=== PATIENT | male | born 1955 | race Caucasian/White ===

== ENCOUNTER 2019-02-08 18:12 | Inpatient (IN) | payer BC, OTHER ==
[~2019-02-08] VITALS: Ht 188 cm; Wt 109.3 kg
[2019-02-08 18:12] VITALS: BP_SYST 128; BP_SYST 80; BP_DIAS 70; BP_DIAS 75
--- NOTE | 2019-02-08 18:12 | NUR ---
Patient BIBA BLS, transferred to bed 9. RN evaluating patient at bedside.
--- NOTE | 2019-02-08 18:15 | NUR ---
BP RECORDED TO BE 80/75. ANNETTE KO MADE AWARE.
--- NOTE | 2019-02-08 18:16 | NUR ---
PATIENT ANSWERING QUESTIONS APPROPRIATELY AT THIS TIME. ALERT AND ORIENTED X4.
--- NOTE | 2019-02-08 18:27 | NUR ---
PATIENT ANSWERING QUESTIONS APPROPRIATELY AT THIS TIME; ALERT AND ORIENTED X4.
--- NOTE | 2019-02-08 18:35 | NUR ---
BP RECORDED AT THIS TIME TO BE 73/40. GIVEN VERBAL ORDER BY DR. WELDON TO RUN 0.9% NS WIDE OPEN, WITNESSED BY SHANTI HUIZAR. PT ALSO PLACED IN TRENDENLENBERG POSITION.
--- NOTE | 2019-02-08 18:46 | NUR ---
BP RECORDED TO BE 62/29. PATIENT ANSWERING QUESTIONS APPROPRIATELY. NS FLUIDS RUNNING AT THIS TIME WIDE OPEN, PT IN TRENDENLENBERG. ER MD DR. WELDON MADE AWARE.
--- NOTE | 2019-02-08 18:50 | NUR ---
SISTER WALKED IN AT BEDSIDE. PREV ADVISED ED ADMISSION THAT PATIENT IS NOT YET READY FOR VISITATION. SISTER STATES THAT SHE HAS POWER OF CHIEF OF PEDIATRIC UROLOGY. SISTER EXPRESSING FRUSTRATION AT PATIENT BEING IN TRENDENLENBERG; STATES THAT BP ALWAYS RUNS LOW. SISTER EDUCATED ON BENEFITS OF TRENDENLENBERG.
--- NOTE | 2019-02-08 18:51 | NUR ---
PATIENT TAKEN OUT OF [facility] PER POWER OF HYDROGEN CELL TENDER. ER MD DR. WELDON MADE AWARE.
--- NOTE | 2019-02-08 18:55 | NUR ---
BP 81/62, SISTER STATES THAT THIS IS PATIENT'S BASELINE. PT ANSWERING QUESTIONS APPROPRIATELY AT THIS TIME. NS FLUIDS STOPPED AT THIS TIME, TOTAL FLUID INFUSED 200ML. ER MD WELDON MADE AWARE.
--- NOTE | 2019-02-08 19:00 | NUR ---
DR. WELDON NOTED TO BE LEAVING ED AT THIS TIME.
--- NOTE | 2019-02-08 19:00 | NUR ---
PT'S SISTER STATED PT CAME HERE FOR RIGHT ARM PICC LINE CHECK, NOT FOR BP.
--- NOTE | 2019-02-08 19:01 | NUR ---
BP RECORDED TO BE 89/64 AT THIS TIME. PATIENT ANSWERING QUESTIONS APPROPRIATELY.
--- NOTE | 2019-02-08 19:15 | NUR ---
BP RECORDED TO BE 83/41 AT THIS TIME. PATIENT ANSWERING QUESTIONS APPROPRIATELY.
--- NOTE | 2019-02-08 19:35 | NUR ---
DR. TRUJILLO EVALUATING PATIENT.
--- NOTE | 2019-02-08 20:10 | NUR ---
US AT BEDSIDE.
[2019-02-08 21:07] LABS: BASOPHILS # (AUTO) 0.1 K/uL (0.00-0.22); BASOPHILS % (AUTO) 0.8 % (0.0-2.0); EOSINOPHILS # (AUTO) 0.2 K/uL (0-0.4); EOSINOPHILS % (AUTO) 2.4 % (0.0-4.0); HEMATOCRIT 22.3 % (36-52); LYMPHOCYTES % (AUTO) 13.9 % (20.5-51.1); MEAN CORPUSCULAR HEMOGLOBIN 28 pg (27-31); MEAN CORPUSCULAR HGB CONC 32 g/dL (33-37); MEAN CORPUSCULAR VOLUME 89.6 fL (80-94); MONOCYTES # (AUTO) 0.6 K/uL (0.8-1.0); MONOCYTES % (AUTO) 8.7 % (1.7-9.3); NEUTROPHILS # (AUTO) 5.2 K/uL (1.8-7.7); NEUTROPHILS % (AUTO) 74.2 % (42.2-75.2); PLATELET COUNT (AUTO) 349 K/uL (140-450); RED BLOOD CELL COUNT(AUTO) 2.48 MIL/uL (4.20-6.10); RED CELL DISTRIBUTION WIDTH 16.3 % (11.6-13.7)
--- NOTE | 2019-02-08 21:07 | NUR ---
PT ACTING APPROPRIATLY, PT STATES 8/10 CHRONIC PAIN; PT STATES TO BE COPING W/ PAIN AND DOES NOT WANT MEDICATION AT THIS TIME.
[2019-02-08 21:16] LABS: ANION GAP 12.3 (8-16); CARBON DIOXIDE 32.5 mmol/L (21-32); CREATININE 3.5 mg/dL (0.7-1.3); POTASSIUM 3.8 mmol/L (3.5-5.1)
[2019-02-08 21:22] LABS: ALBUMIN 1.8 g/dL (3.4-5.0); TOTAL BILIRUBIN 0.3 mg/dL (0.0-1.0)
--- NOTE | 2019-02-08 22:35 | NUR ---
WATER PROVIDED TO SISTER, COMFORT MEASURES PROVIDED TO PT.
[2019-02-08] MEDS ORDERED: VANCOMYCIN 1,000 MG in DEXTROSE 5% 250 ML IV ONE (23:35)
[2019-02-08] MEDS ORDERED: VANCOMYCIN 1,000 MG VIAL ONE (23:51)
--- NOTE | 2019-02-09 00:10 | NUR ---
MED TO BE ADMINISTERED, EDUCATION TO PT AND SISTER PROVIDED; OPPORTUNITY PROVIDED TO AKS AND ANSWER QUESTIONS.
--- NOTE | 2019-02-09 01:00 | NUR ---
DR. HANEY CALLED REGARDING UP DATE ON PT AND SAID THAT IN THE AM THE MD ASSIGNED TO HIS CARE WILL DECIDE IF THEY WILL SEND PT BACK TO [facility].
--- NOTE | 2019-02-09 02:20 | NUR ---
SPOKE W/ MOJGAN AT [facility]. SHE INFORMED ME THAT THE [facility] DOCTOR WOULD NOT RETURN THEIR CALLS. SHE REQUESTED THAT WE HOLD THE PATIENT IN THE ER. I INFORMED HER THAT WE COULD NOT CONTINUE TO HOLD THE PATIENT IN THE ER AND WE WOULD ADMIT TO OUR HOSPITALIST/RESIDENTS. SHE ACKNOWLEDGED AND VERBALIZED UNDERSTANDING. MD TRUJILLO NOTIFIED.
[2019-02-09] MEDS ORDERED: ACETAMINOPHEN 325 MG TAB PO PRN ×2 (02:30→05:15)
[2019-02-09] MEDS ORDERED: ONDANSETRON 4 MG/2 ML VIAL IM/IVP PRN (02:30)
[2019-02-09] MEDS ORDERED: DOCUSATE SODIUM 100 MG GELCAP PO PRN (02:30)
[2019-02-09] MEDS ORDERED: MORPHINE SULFATE 2 MG/ML SYR IVP PRN (02:30)
[2019-02-09] MEDS ORDERED: LORazepam 2 MG/ML VIAL IM/IVP PRN (02:30)
--- NOTE | 2019-02-09 03:00 | NUR ---
ORDER TO APPLY HYDRA-GUARD TO SACRAL WOUND, APPLIED DRESSING
[2019-02-09] MEDS ORDERED: NUTR30LI5 PO (03:02)
[2019-02-09] MEDS ORDERED: MAGN400S60 PO (03:02)
[2019-02-09] MEDS ORDERED: ACET-2619 PO (03:02)
[2019-02-09] MEDS ORDERED: AMLO2.5T PO (03:02)
[2019-02-09] MEDS ORDERED: BISA-213 RC (03:02)
[2019-02-09] MEDS ORDERED: ASPI-1790 PO (03:02)
[2019-02-09] MEDS ORDERED: TRAM50TA1 PO (03:02)
[2019-02-09] MEDS ORDERED: METO25TA PO (03:02)
[2019-02-09] MEDS ORDERED: ALPR1TAB2 PO (03:02)
[2019-02-09] MEDS ORDERED: NYST100022 PO (03:02)
[2019-02-09] MEDS ORDERED: HYDR-5122 PO (03:02)
[2019-02-09] MEDS ORDERED: ATOR20TA PO (03:02)
[2019-02-09] MEDS ORDERED: PANT40EC PO (03:02)
[2019-02-09] MEDS ORDERED: ASCO500T45 PO (03:02)
[2019-02-09] MEDS ORDERED: DOCU-299 PO (03:02)
[2019-02-09] MEDS ORDERED: LOV40I SUBQ (03:02)
[2019-02-09] MEDS ORDERED: ALBU3SOL83 IH (03:02)
[2019-02-09] MEDS ORDERED: DAPT500V IV (03:02)
[2019-02-09] MEDS ORDERED: MORP15TE33 PO (03:02)
[2019-02-09] MEDS ORDERED: ERGO500028 PO (03:02)
[2019-02-09] MEDS ORDERED: VITA1TAB44 PO (03:02)
[2019-02-09] MEDS ORDERED: CALC667T8 PO (03:02)
--- NOTE | 2019-02-09 03:05 | NUR ---
Patient noted to have skin tear upon arrival to ER. Skin tear to sacrum, mild redness, +blanching. Photos taken of wound and placed in chart. Wound covered with dressing. Physician informed.
[2019-02-09 03:09] VITALS: BP 113/66
--- NOTE | 2019-02-09 03:09 | NUR ---
RECEIVED BEDSIDE REPORT FROM SKI TOW OPERATOR, PATIENT ON CONTACT FOR HX MRSA OF WOUND,
--- NOTE | 2019-02-09 03:09 | NUR ---
PATIENT ON 4 L NC, V/S STABLE, C/O PAIN IN BACK, WILL MEDICATE WITH NORCO. MRSA TAKEN SENT TO LAB, HD CATH ON UPPER RIGHT CHEST, RIGHT PICC ON UPPER ARM, LEFT HAND 22 G SL IV, WILL GIVE NS. NOTED SACRAL WOUND, NOTED RIGHT ARM CELLULITIS, BACK LISA ON TOES, 1+ PITTING EDEMA ON BLE.
--- NOTE | 2019-02-09 03:20 | NUR ---
Admited to Tele. Patient went to room 117 via gurney by RN and EMT. Patient acting appropriatly, VSS. Belongings list completed. Report to GAYE Mckeon.
[2019-02-09] MEDS: HYDROcodone/APAP 5/325 MG 1 TAB TAB PO PRN ×2 (03:48→08:13)
[2019-02-09] MEDS: NACL 0.9% 1,000 ML IV SCH (03:49)
[2019-02-09 04:00] VITALS: BP 110/68
--- NOTE | 2019-02-09 04:45 | NUR ---
GAVE PATIENT SANDWICH
--- NOTE | 2019-02-09 05:01 | NUR ---
EXPLAINED TO PATIENT NEED FOR URINE SAMPLE
[2019-02-09] MEDS ORDERED: ALPRAZolam 0.5 MG TAB PO PRN (05:15)
[2019-02-09] MEDS ORDERED: MAGNESIUM HYDROXIDE 2400 MG/30 ML UDC PO PRN (05:15)
[2019-02-09] MEDS ORDERED: traMADol 50 MG TAB PO PRN (05:15)
[2019-02-09] MEDS ORDERED: BISACODYL 10 MG SUPP RC PRN (05:15)
[2019-02-09] MEDS ORDERED: MORPHINE TAB ER 15 MG TABER PO PRN (05:30)
--- NOTE | 2019-02-09 05:39 | NUR ---
PATIENT HAS BEEN SCREENED AND CATEGORIZED HIGH NUTRITION RISK. PATIENT WILL BE SEEN WITHIN 1-2 DAYS OF ADMISSION. 02/09/19-02/10/19 MARGARITO BAIG MS, RDN
[2019-02-09] MEDS ORDERED: ESCI20TA PO (05:40)
[2019-02-09] MEDS: PANTOPRAZOLE 40 MG TABEC PO SCH (05:52)
--- NOTE | 2019-02-09 06:02 | NUR ---
DUE PROTONIX GIVEN
--- NOTE | 2019-02-09 07:13 | NUR ---
ENDORSED PATIENT TO DAY SHIFT NURSE, PATIENT STABLE.
--- NOTE | 2019-02-09 07:14 | NUR ---
RECEIVED ENDORSEMENT FROM AUTOMOTIVE FUEL INJECTION SERVICER NURSE. PT IS AAOX4. RESPIRATIONS ARE EVEN AND UNLABORED ON 4L NC. LEFT HAND 22G IV INTACT, PATENT, AND INFUSING IVF. UPPER RIGHT ARM PICC NOTED AND INTACT. MEDIASTINAL SCAR NOTED. EDEMA PRESENT ON LE BILAT. C/O OF PAIN AT THIS TIME, WILL MEDICATE. PLAN OF CARE WAS REVIEWED WITH PT. PT VERBALIZED UNDERSTANDING. SAFETY MEASURES IN PLACE, CALL LIGHT WITHIN REACH. WILL CONTINUE TO MONITOR.
[2019-02-09 07:53] LABS: PROTHROMBIN TIME 11.3 secs (10.8-13.4)
[2019-02-09 07:58] LABS: BASOPHILS # (AUTO) 0.1 K/uL (0.00-0.22); BASOPHILS % (AUTO) 1.2 % (0.0-2.0); EOSINOPHILS # (AUTO) 0.2 K/uL (0-0.4); EOSINOPHILS % (AUTO) 2.9 % (0.0-4.0); LYMPHOCYTES # (AUTO) 1.2 K/uL (2.0-11.5); LYMPHOCYTES % (AUTO) 14.9 % (20.5-51.1); MEAN CORPUSCULAR HEMOGLOBIN 30 pg (27-31); MEAN CORPUSCULAR HGB CONC 33 g/dL (33-37); MEAN CORPUSCULAR VOLUME 89.1 fL (80-94); MONOCYTES # (AUTO) 0.9 K/uL (0.8-1.0); MONOCYTES % (AUTO) 10.7 % (1.7-9.3); NEUTROPHILS # (AUTO) 5.7 K/uL (1.8-7.7); NEUTROPHILS % (AUTO) 70.3 % (42.2-75.2); PLATELET COUNT (AUTO) 322 K/uL (140-450); RED BLOOD CELL COUNT(AUTO) 2.05 MIL/uL (4.20-6.10); RED CELL DISTRIBUTION WIDTH 16.6 % (11.6-13.7); WHITE BLOOD COUNT (AUTO) 8.1 K/uL (4.8-10.8)
[2019-02-09 08:00] VITALS: BP 132/63
[2019-02-09 08:00] LABS: HEMOGLOBIN 6.1 g/dL (12.0-18.0)
[2019-02-09 08:01] LABS: HEMATOCRIT 18.2 % (36-52)
[2019-02-09 08:04] LABS: ALBUMIN 1.6 g/dL (3.4-5.0); CARBON DIOXIDE 30.6 mmol/L (21-32); CHOL/HDL RATIO 1.9 (1-4.5); CREATININE 3.7 mg/dL (0.7-1.3); MAGNESIUM 1.9 mg/dL (1.8-2.4); PHOSPHORUS 5.8 mg/dL (2.5-4.9); POTASSIUM 3.6 mmol/L (3.5-5.1); THYROID STIMULATING HORMONE 1.6 uIU/mL (0.34-3.74); TOTAL BILIRUBIN 0.3 mg/dL (0.0-1.0)
[2019-02-09] MEDS: VIT-B COMP/VIT-C/FOLIC ACID 1 TAB PO SCH (08:11)
[2019-02-09] MEDS: LACTOBACILLUS RHAMNOSUS GG 1 EACH CAP PO SCH (08:11)
[2019-02-09] MEDS: ESCITALOPRAM 20 MG TAB PO SCH (08:12)
[2019-02-09] MEDS: DOCUSATE SODIUM 100 MG GELCAP PO SCH ×3 (08:12→21:55)
[2019-02-09] MEDS: ASCORBIC ACID 500 MG TAB PO SCH (08:12)
--- NOTE | 2019-02-09 08:18 | NUR ---
ADMINISTERED SCHEDULED MEDICATIONS. PT C/O OF 610 PAIN TO LOWER BACK. ADMINISTERED NORCO. SKIN TEAR ON LEFT HAND FROM PT REMOVING TAPE, REQUESTED ONLY PAPER TAPE. SIGN PLACED ON WALL. PT DOES NOT WANT PHOT TAKEN AT THIS TIME AND WANTS WOUND COVERED. COVERED WITH 2X2 GAUZE, WILL TAKE PHOTO LATER.
--- NOTE | 2019-02-09 08:30 | NUR ---
PT REFUSED TO SIGN CONSENT FOR BLOOD TRANSFUSION AT THIS TIME. STATES THAT HE WISHES TO SPEAK WITH HIS SISTER FIRST. WILL FOLLOW UP.
--- NOTE | 2019-02-09 08:58 | NUR ---
OBTAINED INFORMED CONSENT FOR BLOOD TRANSFUSION FROM PATIENT. DR. GAMA HAS EXPLAINED BLOOD TRANSFUSION TO PATIENT. OBTAIN DR. WEBBER WELL.
[2019-02-09] MEDS ORDERED: DAPTOmycin 500 MG VIAL IV SCH (09:00)
--- NOTE | 2019-02-09 09:02 | NUR ---
INFORMED DR. GAMA THAT PATIENT STATES HE TAKES MORPHINE AND USES LIDOCAINE PATCH PRIOR TO THIS HOSPITALIZATION. REQUESTING SAME PAIN REGIMEN. DR. GAMA WILL REVIEW PAIN MEDICATIONS.
--- NOTE | 2019-02-09 09:09 | NUR ---
ASKED HARVEST WORKER FRUIT TO BRING 0900 ROCEPHIN.
--- NOTE | 2019-02-09 09:15 | NUR ---
PATIENT REFUSED BARBARA FOBT SAMPLE. PER DR. GAMA, WILL WAIT ON BM FOR FOBT SAMPLE. PT IS AWARE AND VERBALIZED UNDERSTANDING.
[2019-02-09] MEDS ORDERED: HYDRAGUARD CREAM TP SCH (09:22)
[2019-02-09] MEDS: amLODIPine 5 MG TAB PO SCH ×2 (09:34→10:08)
[2019-02-09] MEDS: METOPROLOL 25 MG TAB PO SCH ×3 (09:34→21:00)
[2019-02-09] MEDS ORDERED: MORPHINE TAB ER 15 MG TABER PO SCH (09:35)
--- NOTE | 2019-02-09 10:28 | NUR ---
OBTAINED FOBT SAMPLE. PT HAD MODERATE SIZE FORMED, SOFT BM. OBTAINED CONSENT FOR HEMODIALYSIS AND CONSENT FOR MEDICAL RECORDS FROM [facility].
--- NOTE | 2019-02-09 10:32 | NUR ---
DID NOT ADMIN METOPROLOL OR AMLODIPINE- PLAN FOR HEMODIALYSIS TODAY.
--- NOTE | 2019-02-09 10:47 | NUR ---
FAXED REQUEST FOR MEDICAL RECORDS TO [facility].
[2019-02-09 12:00] VITALS: BP 96/58
[2019-02-09] MEDS: FUROSEMIDE 20 MG TAB PO SCH ×2 (12:00→16:00)
[2019-02-09] MEDS: CALCIUM ACETATE 667 MG TAB PO SCH ×2 (12:53→17:36)
--- NOTE | 2019-02-09 13:00 | NUR ---
SCHEDULED MEDICATIONS ADMINISTERED. OBTAINED URINE SAMPLE-WILL SEND TO LAB.
--- NOTE | 2019-02-09 13:09 | NUR ---
INFORMED ETCHER PRINTED CIRCUIT BOARDS THAT HD IS ORDERED FOR TODAY WITH 2 UNITS PRBC TO BE TRANSFUSED DURING DIALYSIS. CROSSMATCH STILL PENDING. EXTRA 1 UNIT OF PRBC JUST ORDERED. ETCHER PRINTED CIRCUIT BOARDS WILL CALL LAB TO FIND OUT STATUS.
--- NOTE | 2019-02-09 13:16 | NUR ---
[facility] STATES 1ST UNIT OF BLOOD WAS JUST SENT FOR CROSSMATCH. STATE BLOOD UNITS WILL TAKE "A WHILE" TO BE PREPARED.
[2019-02-09 13:51] LABS: APPEARANCE,URINE HAZY (CLEAR); BILIRUBIN,URINE 2+ (NEGATIVE); BLOOD, URINE 2+ (NEGATIVE); COLOR,URINE AMBER (YELLOW); LEUKOCYTE ESTERASE ,URINE NEGATIVE (NEGATIVE); NITRITE, URINE NEGATIVE (NEGATIVE); PH,URINE 5.5 (5.0-9.0); UGLUCOSE NEGATIVE (NEGATIVE)
[2019-02-09] MEDS ORDERED: ENOXAPARIN 30 MG/0.3 ML SYR SUBQ SCH (13:54)
[2019-02-09 13:57] LABS: BARBITURATE, URINE NEG. ng/ml (NEG <=200); BENZODIAZEPINE, URINE NEG. ng/mL (NEG <=200); CANNABINOID, URINE NEG. ng/mL (NEG <=50); COCAINE, URINE NEG. ng/mL (NEG <=300); OPIATE, URINE POS. ng/mL (NEG <=2000); PHENCYCLIDINE SCREEN,URINE NEG. ng/mL (NEG <=25)
[2019-02-09 14:04] LABS: URINE AMORPHOUS URATE 1+ /HPF (None Seen); WBC,URINE 0-5 /HPF (0-5)
--- NOTE | 2019-02-09 14:15 | NUR ---
BENITO FROM [facility] CALLED TO INQUIRE ABOUT BLOOD. INFORMED HER THAT BLOOD IS NOT READY, 1ST UNIT PRBC IS STILL IN PROCESS OF BEING CROSSMATCHED, BLOOD BANK AWARE OF ORDER FOR 2ND UNIT OF PRBC (2 UNITS TOTAL). NO ESTIMATE TIME FROM BLOOD BANK. BLOOD BANK ONLY STATES PRBC WILL TAKE "A WHILE" TO BE PREPARED.
--- NOTE | 2019-02-09 15:30 | NUR ---
BLOOD BANK STATES 2 UNITS PRBC READY.
--- NOTE | 2019-02-09 15:30 | NUR ---
INFORMED [facility] THAT 2 UNITS PRBC IS READY. SHEET PILE DRIVER OPERATOR WILL BE ON THE WAY NOW.
--- NOTE | 2019-02-09 15:32 | NUR ---
ASKED HOUSE RACHEAL NGUYỄN TO BRING PORTABLE FAN TO ROOM. PATIENT AND FAMILY MEMBER STATES ROOM TEMPERATURE TOO HIGH. ROOM TEMPERATURE IS ALREADY SET TO LOWEST.
--- NOTE | 2019-02-09 15:40 | NUR ---
PT LEFT UNIT WITH ALL PERSONAL BELONGINGS. GAVE BUS PASS AND HOMELESS FOOD PACKET. PT WILL RETURN TO UNSPECIFIED LOCATION. IN STABLE CONDITION.
[2019-02-09 16:00] VITALS: BP 91/55
--- NOTE | 2019-02-09 17:35 | NUR ---
1 UNIT PRBC OBTAINED FROM BLOOD BANK AND GIVEN TO TRAVEL MANAGER AT BEDSIDE.
--- NOTE | 2019-02-09 17:52 | NUR ---
OBTAINED 2ND UNIT PRBC AND GAVE TO PLAYGROUND WORKER.
--- NOTE | 2019-02-09 19:18 | NUR ---
REPORT AT BEDSIDE FROM RN DAYSHIFT NURSES FOR CONTINUITY OF CARE, PT IN STABLE CONDITION.
--- NOTE | 2019-02-09 19:18 | NUR ---
ENDORSED TO BROADCAST METEOROLOGIST NURSE. PATIENT IS STABLE.
--- NOTE | 2019-02-09 19:30 | NUR ---
PT IN BED NO S/S OF PAIN OR DISTRESS NOTED, HD IN PROGRESS AT BEDSIDE.
[2019-02-09 20:00] VITALS: BP 119/75
--- NOTE | 2019-02-09 21:00 | NUR ---
PT IN BED NO S/S OF PAIN OR DISTRESS NOTED. V/S FOLLOWS T 98.1 P 90 R 18 B/P 106/67 02 100% ON 4 LITERS VIA N/C.
--- NOTE | 2019-02-09 21:40 | NUR ---
HEMODIALYSIS FINISHED 2 LITERS OF FLUID TAKEN OUT.
[2019-02-09] MEDS: ATORVASTATIN 20 MG TAB PO SCH (21:55)
[2019-02-09] MEDS: MORPHINE TAB ER 15 MG TABER PO SCH (21:56)
--- NOTE | 2019-02-09 22:00 | NUR ---
PT TURNED AND REPOSITIONED NO C/O OF PAIN OR DISTRESS NOTED.
[2019-02-10] VITALS: BP 107/74
--- NOTE | 2019-02-10 | NUR ---
PT IN BED NO S/S OF PAIN OR DISTRESS NOTED. PICC LINE INTACT AND RUNNING N/S AT TKO AT 10MLS /HR. PT ALSO HAS SALINE LOCKED IV ON LEFT HAND. PT V/S FOLLOWS T 97.9 P 86 R 18 B/P 02 100 WITH 4 LITERS RUNNING VIA N/C. PT TURNED AND REPOSITIONED.
[2019-02-10] MEDS: HYDROcodone/APAP 5/325 MG 1 TAB TAB PO PRN ×2 (03:40→23:56)
[2019-02-10 04:00] VITALS: BP 106/67
--- NOTE | 2019-02-10 04:00 | NUR ---
PT IN BED, PT C/O MODERATE PAIN IN BACK AND ASKED FOR SOMETHING FOR THE BREAKTHROUGH PAIN, PT GIVEN PO/PRN NORCO, WILL MONITOR FOR EFFECT. PT TURNED AND REPOSITIONED.V/S FOLLOWS T 98.1 P 90 R 18 B/P 106/67 02 100% ON N/C AT 4 LITERS.
[2019-02-10] MEDS: PANTOPRAZOLE 40 MG TABEC PO SCH (07:01)
--- NOTE | 2019-02-10 07:25 | NUR ---
REPORT GIVEN TO SITAL AT BEDSIDE FOR CONTINUITY OF CARE, PT IN STABLE CONDITION.
--- NOTE | 2019-02-10 07:26 | NUR ---
RECEIVED REPORT FROM PM NURSE AT BEDSIDE, PT IS ON CONTACT ISOLATION FOR HX OF MRSA IN WOUND. PT HAS PICC LINE IN HIS RT UPPER ARM, TRIPLE LUME. HAS THE HD ACCESS ON HIS RT UPPER CHEST. HAS THE SCAR FROM THE OPEN HEART SURGERY DOEN ON PT BEFORE. PT HAS THE SACRAL WOUND. PT GOT HD 02/09/19, 2L OUTPUT. PT GETS HD EVERY SUNDAY, SUNDAY AND SUNDAY. PT A0X4, ABLE TO COMMUNICATE WELL. NO DISTRESS NOTED. CALL LIGHT WITHIN PTS REACH. WILL CONTINUE TO MONITOR PT.
[2019-02-10 08:00] VITALS: BP 114/73
[2019-02-10 08:34] LABS: MAGNESIUM 1.7 mg/dL (1.8-2.4); PHOSPHORUS 4.6 mg/dL (2.5-4.9)
[2019-02-10 08:45] LABS: BASOPHILS # (AUTO) 0.1 K/uL (0.00-0.22); BASOPHILS % (AUTO) 1.2 % (0.0-2.0); EOSINOPHILS # (AUTO) 0.3 K/uL (0-0.4); EOSINOPHILS % (AUTO) 3.6 % (0.0-4.0); HEMATOCRIT 24.4 % (36-52); HEMOGLOBIN 7.8 g/dL (12.0-18.0); LYMPHOCYTES # (AUTO) 1.2 K/uL (2.0-11.5); LYMPHOCYTES % (AUTO) 15.8 % (20.5-51.1); MEAN CORPUSCULAR HEMOGLOBIN 29 pg (27-31); MEAN CORPUSCULAR HGB CONC 32 g/dL (33-37); MEAN CORPUSCULAR VOLUME 89.9 fL (80-94); MONOCYTES # (AUTO) 0.9 K/uL (0.8-1.0); MONOCYTES % (AUTO) 12.4 % (1.7-9.3); PLATELET COUNT (AUTO) 298 K/uL (140-450); RED BLOOD CELL COUNT(AUTO) 2.71 MIL/uL (4.20-6.10); RED CELL DISTRIBUTION WIDTH 16.5 % (11.6-13.7); WHITE BLOOD COUNT (AUTO) 7.5 K/uL (4.8-10.8)
[2019-02-10 08:47] LABS: ANION GAP 10.7 (8-16); CARBON DIOXIDE 31.5 mmol/L (21-32); CREATININE 3.1 mg/dL (0.7-1.3); POTASSIUM 4.2 mmol/L (3.5-5.1)
[2019-02-10] MEDS: METOPROLOL 25 MG TAB PO SCH ×2 (09:00→23:56)
[2019-02-10] MEDS: amLODIPine 5 MG TAB PO SCH (09:00)
[2019-02-10] MEDS: NACL 0.9% 1,000 ML IV SCH (09:30)
[2019-02-10] MEDS: LACTOBACILLUS RHAMNOSUS GG 1 EACH CAP PO SCH (09:36)
[2019-02-10] MEDS: DOCUSATE SODIUM 100 MG GELCAP PO SCH ×2 (09:38→23:48)
[2019-02-10] MEDS: MORPHINE TAB ER 15 MG TABER PO SCH ×2 (09:38→20:22)
[2019-02-10] MEDS: ASCORBIC ACID 500 MG TAB PO SCH (09:38)
[2019-02-10] MEDS: ESCITALOPRAM 20 MG TAB PO SCH (09:39)
[2019-02-10] MEDS: VIT-B COMP/VIT-C/FOLIC ACID 1 TAB PO SCH (09:39)
[2019-02-10] MEDS: CALCIUM ACETATE 667 MG TAB PO SCH ×3 (09:39→17:00)
[2019-02-10] MEDS: EPOETIN ALFA 10,000 UNITS/ML VIAL SUBQ SCH (09:40)
[2019-02-10] MEDS: ENOXAPARIN 30 MG/0.3 ML SYR SUBQ SCH (09:43)
--- NOTE | 2019-02-10 09:55 | NUR ---
ADMINISTERED MEDS TO PT ORDERED. PTS BP MEDS PUT ON HOLD, WILL GET HD TODAY. PT OKAY WITH IT. TOLERATED ALL MEDS WELL. NO SIGN OF DISTRESS NOTED. CALL LIGHT WITHIN REACH. WILL CONTINUE TO MONITOR PT.
--- NOTE | 2019-02-10 11:45 | NUR ---
WOUND CARE EVALUATION NOTE: REASON FOR EVALUATION: LEFT FOOT AND SACRAL WOUNDS SKIN ASSESSMENT DONE WITH THIS 64 Y/O MALE PT ADMITTED TO [facility] WITH INITIAL DX RUE CELLULITIS. PAST MEDICAL HX INCLUDES HTN, COPD,ESRD WITH HD AND RECENT OPEN HEART SURGERY DECEMBER 2018. ALL ABOVE INFORMATION OBTAINED FROM ADMISSION H&P. AND /PT. PT IS AAX4. PT. IS AWAKE. SKIN IS WARM AND DRY, BLE HAIR GROWTH, NO EDEMA. DORSAL PEDAL PULSES DIMINISHED.INCONTINENT OF BOWEL AND USE URINAL FOR URINE OUTPUT WHEN NEEDED. PLAN OF CARE DISCUSSED WITH PRIMARY RN. CLARIFICATION, SACRALCOCCYX SKIN NORMAL AND INTACT, NO PRESSURE INJURY INTEGUMENTARY: -MULTIPLE ECCHYMOSIS TO UPPER EXTREMITIES -LEFT HAND SKIN TEAR 4X3CM, SUPERFICIAL DEPTH, NEGIN-WOUND SKIN INTACT WITH ECCHYMOSIS -MID CHEST SURGICAL WOUND HEALED SCAR WITH MULTIPLE SCABS 25 CM IN LENGTH -INCONTINENT ASSOCIATE DERMATITIS (IAD) TO: BUTTOCK GROOVES EXTENDED TO PERIANAL, SKIN REDNESS, 1X0.1CM SKIN EROSION TO BUTTOCK GROOVE, NEGIN-WOUND SKIN INTACT -LEFT 2ND, 3RD AND 4TH DIGIT ROES WITH MULTIPLE BLACK NECROTIC TISSUES AND CLOSED DARK COLOR BLISTER WITH LARGEST TO 4TH DIGIT PLANTAR 1X2CM, BLACK ESCHAR -LEFT KNEE AND RIGHT LATERAL MALLEOLUS OLD HEALED SCAR RECOMMENDATIONS: -CLEANSE LEFT HAND WITH NS. PAT DRY, APPLY ADAPTIC DRESSING COVER WITH DRY DRESSING Q MWF AND PRN IF SOILING - CLEANSE BUTTOCK GROOVES EXTENDED TO PERIANAL WITH SOAP AND WATER, PAT DRY, APPLY Z-GUARD BID AND PRN IF SOILING,BMW SERVICE TECHNICIAN -PAINT LEFT FOOT TOESX4 AND MID CHEST SURGICAL WOUND SCANS BID AND [employer] SERVICE TECHNICIAN -APPLY FORM DRESSING TO SACROCOCCYX CHANGE Q7 DAYS AND PRN IF SOILING PREVENTION -APPLY HEEL PROTECTORS TO BOTH HEELS AT ALL TIMES -OFFLOAD BILATERAL HEELS BY PLACING PILLOWS UNDER CALVES UNLESS OTHERWISE CONTRAINDICATED -PRESSURE REDISTRIBUTION SURFACE THERAPY -TURN AND REPOSITION Q2H, OFFLOAD SACRALCOCCYX AND BUTTOCKS BY TURNING RIGHT AND LEFT -CONTINUE TO FOLLOW RD RECOMMENDATIONS ALL ABOVE RECOMMENDATIONS DISCUSSED WITH PRIMARY RN. WILL FOLLOW UP PT Q7-10 DAYS. PLEASE CONTACT WOUND CARE NURSE FOR ANY QUESTION AND CHANGE OF WOUND CONDITION. Addendum: 02/10/19 at 1544 by Josee Mcdonald RN (Grace) SPOKE TO DR. JHAVERI OF RECOMMEND VASCULAR CONSULT.
[2019-02-10] MEDS ORDERED: MAGNESIUM OXIDE 400 MG TAB PO SCH (12:30)
[2019-02-10] MEDS: DAPTOMYCIN IV SCH (13:02)
[2019-02-10] MEDS: NACL 0.9% IV SCH (13:02)
--- NOTE | 2019-02-10 14:29 | NUR ---
02/10/19 RD INITIAL ASSESSMENT COMPLETED PLEASE REFER TO NUTRITION ASSESSMENT UNDER CARE ACTIVITY FOR ESTIMATED NUTRITIONAL NEEDS. 1. CONTINUE RENAL DIET TOLERATED 2. RECOMMEND NEPRO BID 3. EDUCATION ON ESRD AND WOUND HEALING WERE PROVIDED 4. RD TO FOLLOW-UP 3-5 DAYS, MODERATE RISK ANDREW STONE, [place]
[2019-02-10 16:00] VITALS: BP 118/72
--- NOTE | 2019-02-10 19:35 | NUR ---
ENDORSED PT TO PM NURSE AT BEDSIDE. PT IN STABLE CONDITION.
--- NOTE | 2019-02-10 19:36 | NUR ---
RECEIVED REPORT FROM FRANCIS NURSEADITI. PT SITTING IN BED, AWAKE, ALERT AND ORIENTED. PT RIGHT UPPER ARM PICC INTACT AND INFUSING WELL. PT RIGHT UPPER CHEST CENTRAL LINE INTACT. PT LEFT HAND 22G SALINE LOCKED. PT ON 4L O2 VIA N.C. PT REPOSITIONED TO OFFLOAD PRESSURE ON SACRAL AREA. SAFETY PRECAUTIONS IN PLACE, BED IN LOWEST POSITION, CALL LIGHT WITH IN REACH.
[2019-02-10 20:00] VITALS: BP 105/64
--- NOTE | 2019-02-10 21:45 | NUR ---
HD NURSE CAME TO START DIALYSIS.
--- NOTE | 2019-02-10 23:30 | NUR ---
HD DONE WITH OUTPUT 2600ML. PT IN STABLE CONDITION.
[2019-02-10 23:45] VITALS: BP 103/71
[2019-02-10] MEDS: ATORVASTATIN 20 MG TAB PO SCH (23:52)
--- NOTE | 2019-02-11 00:30 | NUR ---
PT HAD SOME CRACKERS AND PUDDING. TOLERATED WELL.
[2019-02-11] MEDS: Z-GUARD PASTE TP SCH ×2 (01:00→13:00)
--- NOTE | 2019-02-11 02:00 | NUR ---
MADE ROUNDS . PT ASLEEP. NO S/S OF ANY DISCOMFORT NOR PAIN NOTED.
[2019-02-11] MEDS: NACL 0.9% 1,000 ML IV SCH (03:00)
--- NOTE | 2019-02-11 03:00 | NUR ---
MADE ROUNDS. PT ASLEEP. NO S/S OF ANY DISCOMFORT NOTED. WILL CONTINUE TO MONITOR.
[2019-02-11 04:05] VITALS: BP 119/71
[2019-02-11] MEDS: HYDROcodone/APAP 5/325 MG 1 TAB TAB PO PRN ×2 (04:22→23:45)
[2019-02-11 04:43] LABS: TRANSFERRIN 64 mg/dL (200 - 370)
--- NOTE | 2019-02-11 05:00 | NUR ---
MADE ROUNDS. PT SLEEPING. NO S/SF ANY PAIN NOTED.
[2019-02-11] MEDS: PANTOPRAZOLE 40 MG TABEC PO SCH (06:20)
--- NOTE | 2019-02-11 07:10 | NUR ---
ENDORSED PT TO AM NURSE, ADITI. PT IN STABLE CONDITION.
--- NOTE | 2019-02-11 07:11 | NUR ---
RECEIVED REPORT FROM PM NURSE AT BEDSIDE. PT UP AND SITTING ON HIS BED. GOT HD YESTERDAY, 2.6L OUTPUT. HAS PICC LINE ON HIS RT UA, IVF INFUSING WELL. CALL LIGHT WITHIN PT REACH. NO SIGN OF DISTRESS NOTED. WILL CONTINUE TO MONITOR PT.
[2019-02-11 07:31] LABS: BASOPHILS # (AUTO) 0.1 K/uL (0.00-0.22); BASOPHILS % (AUTO) 0.9 % (0.0-2.0); EOSINOPHILS # (AUTO) 0.4 K/uL (0-0.4); EOSINOPHILS % (AUTO) 4.1 % (0.0-4.0); HEMATOCRIT 25.1 % (36-52); HEMOGLOBIN 8.1 g/dL (12.0-18.0); LYMPHOCYTES # (AUTO) 1.4 K/uL (2.0-11.5); LYMPHOCYTES % (AUTO) 15.4 % (20.5-51.1); MEAN CORPUSCULAR HEMOGLOBIN 29 pg (27-31); MEAN CORPUSCULAR HGB CONC 32 g/dL (33-37); MEAN CORPUSCULAR VOLUME 90.5 fL (80-94); MONOCYTES # (AUTO) 0.9 K/uL (0.8-1.0); MONOCYTES % (AUTO) 10.3 % (1.7-9.3); NEUTROPHILS # (AUTO) 6.1 K/uL (1.8-7.7); NEUTROPHILS % (AUTO) 69.3 % (42.2-75.2); PLATELET COUNT (AUTO) 301 K/uL (140-450); RED BLOOD CELL COUNT(AUTO) 2.78 MIL/uL (4.20-6.10); WHITE BLOOD COUNT (AUTO) 8.9 K/uL (4.8-10.8)
[2019-02-11 08:00] VITALS: BP 117/74
[2019-02-11 08:02] LABS: ANION GAP 12.2 (8-16); CARBON DIOXIDE 28.9 mmol/L (21-32); POTASSIUM 4.1 mmol/L (3.5-5.1)
[2019-02-11 08:21] LABS: MAGNESIUM 1.6 mg/dL (1.8-2.4); PHOSPHORUS 5.2 mg/dL (2.5-4.9)
[2019-02-11] MEDS: VIT-B COMP/VIT-C/FOLIC ACID 1 TAB PO SCH (08:32)
[2019-02-11] MEDS: CALCIUM ACETATE 667 MG TAB PO SCH ×3 (08:32→16:26)
[2019-02-11] MEDS: DOCUSATE SODIUM 100 MG GELCAP PO SCH ×3 (08:32→20:28)
[2019-02-11] MEDS: LACTOBACILLUS RHAMNOSUS GG 1 EACH CAP PO SCH (08:32)
[2019-02-11] MEDS: ASCORBIC ACID 500 MG TAB PO SCH (08:32)
[2019-02-11] MEDS: MORPHINE TAB ER 15 MG TABER PO SCH ×2 (08:33→20:19)
[2019-02-11] MEDS: ESCITALOPRAM 20 MG TAB PO SCH (08:33)
[2019-02-11] MEDS: ENOXAPARIN 30 MG/0.3 ML SYR SUBQ SCH (08:34)
--- NOTE | 2019-02-11 08:44 | NUR ---
ADMINISTERED MEDS TO PT ORDERED. HELD BP MEDS, PT TO GET HD TODAY. MD KNIGHT SAW THE PT. WILL CONTINUE TO MONITOR PT.
[2019-02-11] MEDS: METOPROLOL 25 MG TAB PO SCH ×2 (09:00→20:28)
[2019-02-11] MEDS: amLODIPine 5 MG TAB PO SCH (09:00)
[2019-02-11 12:00] VITALS: BP 108/69
--- NOTE | 2019-02-11 12:02 | NUR ---
CHECKED ON PT. SITTING COMFORTABLY IN HIS BED. NO DISTRESS NOTED. PT TO GET HD TODAY. ORDER PRINTED OUT AND NS 2 BOTTLES PROVIDED TO HD NURSE. ADMINISTERED MEDS TO PT ORDERED. PT FAMILY AT THE BEDSIDE. WILL CONTINUE TO MONITOR PT.
[2019-02-11] MEDS: GAUZE TP SCH ×2 (13:00)
--- NOTE | 2019-02-11 13:46 | NUR ---
CHECKED ON PT . PT GETTING HD . WILL CONTINUE TO MONITOR PT.
--- NOTE | 2019-02-11 15:00 | NUR ---
HELPED THE PT TO CHANGE THE POSITION AND CLEAN HIM. APPLIED THE BETADINE PAINT ON HIS SCAB ON CHAEST AND ON HIS LFT FOOT FINGERS. PT TOLERATED WELL. PT HAS HD TODAY , TOOK 2L OUT OF THE PATIENT. PT BP 108/69, STABLE AT THIS TIME. NO DISTRESS NOTED. ALL SAFETY MEASURE IN PLACE. WILL CONTINUE TO MONITOR PT.
[2019-02-11 16:00] VITALS: BP 99/63
--- NOTE | 2019-02-11 16:30 | NUR ---
ADMINISTERED MEDS TO PT ORDERED. TOLERATED WELL. ALL SAFETY MEASURE IN PLACE. WILL CONTINUE TO MONITOR PT.
--- NOTE | 2019-02-11 19:20 | NUR ---
ENDORSED PT TO PM NURSE AT BEDSIDE. PT IN STABLE CONDITION.
--- NOTE | 2019-02-11 19:21 | NUR ---
REPORT RECEIVED FROM AM NURSEADITI. PT SITTING UP IN BED, AWAKE, ALERT AND ORIENTED. RIGHT UPPER ARM PICC LINE DRY AND INTACT. RIGHT UPPER CHEST CENTRAL LINE HD CATHETER DRESSING DRY AND CLEAN. LEFT HAND IV 22G INTACT AND SALINE LOCKED. PT ON 4L O2 VIA N.C. PT REPOSITIONED FOR COMFORT. SAFETY PRECAUTIONS IN PLACE, YELLOW GOWN, YELLOW SOCKS, YELLOW ARM BAND AND BED IN LOW POSITION. CALL LIGHT WITHIN REACH. WILL CONTINUE TO MONITOR.
[2019-02-11 20:02] VITALS: BP 92/58
[2019-02-11] MEDS: ATORVASTATIN 20 MG TAB PO SCH (20:18)
--- NOTE | 2019-02-11 20:30 | NUR ---
PT ENCOURAGED TO BE TURNED TO SIDES BUT REFUSED. HE JUST WANT THE PILLOWS OUT OF HIS SIDES AND HE WANTS TO LAY ON HIS BACK FOR NOW. HE SAID HE IS MORE COMFORTABLE THIS WAY.
--- NOTE | 2019-02-11 22:55 | NUR ---
INFORMED DR QUIGLEY, RESIDENT, OF PTS MAG LEVEL OF 1.6.
[2019-02-11] MEDS ORDERED: MAG SULF 2000 MG/WATER PREMIX 50 ML IV SCH (23:30)
[2019-02-12] VITALS (7 sets, daily range): BP systolic 90–122; BP diastolic 60–75
--- NOTE | 2019-02-12 00:05 | NUR ---
ADDITIONAL NOTES : SACRAL AREA WITH OPEN WOUND, CLEANSED , PAT DRY THEN APPLIED Z GUARD AND COVERED WITH OPTIFOAM DRESSING . MARCIN GROIN AND PERINEAL AREA WITH INCONTINENT DERMATITIS. ALSO CLEANED AND PAT DRY, Z GUARD APPLIED . EDUCATE PT TO BE TURNED AT LEAST Q2H.
--- NOTE | 2019-02-12 00:05 | NUR ---
PT AWAKE IN BED WATCHING TV. NO VISIBLE SIGNS OF DISTRESS. NEGIN CARE PROVIDED AND REPOSITIONED AT THIS TIME. ALL NEEDS ATTENDED TO. SAFETY PRECAUTIONS IN PLACE. CALL LIGHT WITHIN REACH. WILL CONTINUE TO MONITOR
[2019-02-12] MEDS: Z-GUARD PASTE TP SCH ×2 (01:00→13:00)
--- NOTE | 2019-02-12 01:15 | NUR ---
PT REQUESTED FOR SOME PEANUT BUTTER /JELLY SANDWICH. PROVIDED AND ABLE TO FINISHED ALL.
--- NOTE | 2019-02-12 02:33 | NUR ---
ROUNDED ON PT. PT IN BED ASLEEP. PT ON 4L O2 N.C, BREATHING SYMMETRICAL AND UNLABORED. SAFETY PRECAUTIONS IN PLACE, BED IN LOW POSITION, SIDE RAILS UP X2. CALL LIGHT WITHIN REACH. WILL CONTINUE TO MONITOR.
[2019-02-12] MEDS: NACL 0.9% 1,000 ML IV SCH (03:00)
--- NOTE | 2019-02-12 04:00 | NUR ---
REPOSITIONED PT FOR COMFORT. NO C/O ANY PAIN NOTED.
[2019-02-12] MEDS: PANTOPRAZOLE 40 MG TABEC PO SCH (05:49)
--- NOTE | 2019-02-12 06:10 | NUR ---
PT REPOSITIONED FOR COMFORT. NO C/O DISCOMFORT.
[2019-02-12 07:00] LABS: BASOPHILS # (AUTO) 0.1 K/uL (0.00-0.22); BASOPHILS % (AUTO) 1.2 % (0.0-2.0); EOSINOPHILS # (AUTO) 0.5 K/uL (0-0.4); EOSINOPHILS % (AUTO) 5.4 % (0.0-4.0); HEMATOCRIT 25.4 % (36-52); HEMOGLOBIN 8.2 g/dL (12.0-18.0); LYMPHOCYTES # (AUTO) 1.5 K/uL (2.0-11.5); LYMPHOCYTES % (AUTO) 17.3 % (20.5-51.1); MEAN CORPUSCULAR HEMOGLOBIN 29 pg (27-31); MEAN CORPUSCULAR HGB CONC 32 g/dL (33-37); MONOCYTES % (AUTO) 11.6 % (1.7-9.3); NEUTROPHILS # (AUTO) 5.4 K/uL (1.8-7.7); NEUTROPHILS % (AUTO) 64.5 % (42.2-75.2); PLATELET COUNT (AUTO) 287 K/uL (140-450); RED CELL DISTRIBUTION WIDTH 16.6 % (11.6-13.7); WHITE BLOOD COUNT (AUTO) 8.4 K/uL (4.8-10.8)
[2019-02-12 07:12] LABS: ANION GAP 10.5 (8-16); CARBON DIOXIDE 31.3 mmol/L (21-32); CREATININE 3.4 mg/dL (0.7-1.3); POTASSIUM 3.8 mmol/L (3.5-5.1)
[2019-02-12 07:18] LABS: MAGNESIUM 2.1 mg/dL (1.8-2.4); PHOSPHORUS 4.3 mg/dL (2.5-4.9)
--- NOTE | 2019-02-12 07:20 | NUR ---
ENDORSED TO AM NURSECINDY. PT IN STABLE CONDITION.
--- NOTE | 2019-02-12 07:52 | NUR ---
RECEIVED HAND OFF REPORT FROM FOLLOW UP SPECIALIST NURSE PT IS AWAKE IN BED. PT APPEARS STABLE AND IN NO APPARENT DISTRESS. ALL SAFETY MEASURES ARE IN PLACE. WILL CONTINUE TO MONITOR.
[2019-02-12] MEDS: amLODIPine 5 MG TAB PO SCH (09:00)
[2019-02-12] MEDS: METOPROLOL 25 MG TAB PO SCH ×2 (09:00→20:38)
[2019-02-12] MEDS: LACTOBACILLUS RHAMNOSUS GG 1 EACH CAP PO SCH (09:18)
[2019-02-12] MEDS: MORPHINE TAB ER 15 MG TABER PO SCH ×2 (09:18→20:44)
[2019-02-12] MEDS: ESCITALOPRAM 20 MG TAB PO SCH (09:19)
[2019-02-12] MEDS: DOCUSATE SODIUM 100 MG GELCAP PO SCH ×2 (09:19→20:44)
[2019-02-12] MEDS: CALCIUM ACETATE 667 MG TAB PO SCH ×3 (09:19→17:48)
[2019-02-12] MEDS: VIT-B COMP/VIT-C/FOLIC ACID 1 TAB PO SCH (09:20)
[2019-02-12] MEDS: EPOETIN ALFA 10,000 UNITS/ML VIAL SUBQ SCH (09:20)
[2019-02-12] MEDS: ASCORBIC ACID 500 MG TAB PO SCH (09:20)
[2019-02-12] MEDS: ENOXAPARIN 30 MG/0.3 ML SYR SUBQ SCH (09:21)
--- NOTE | 2019-02-12 09:25 | NUR ---
FREQUENT ROUNDING PT IS AWAKE AND STABLE IN BED NO APPARENT DISTRESS, ALL SAFETY MEASURES ARE IN PLACE WILL CONTINUE TO MONITOR
--- NOTE | 2019-02-12 11:22 | NUR ---
CALLED MERLYN ALONZO SPOKE TO [facility] COORDINATOR [phone], FAXED CLINICALS AND PATIENT INFORMATION TO [phone],PER IRVIN SHE WILL CALL AUTHORIZATION TO [facility] AND WILL ARRANGE TRANSPORTATION AFTER PATIENT IS DONE WITH DIALYSIS TODAY, NOTIFIED CINDY RN IN CHARGE OF PATIENT IN THE FLOOR TO LET ME KNOW WHEN DIALYSIS IS DONE TO ARRANGE TRANSPORT, VERBALIZED UNDERSTANDING.
--- NOTE | 2019-02-12 11:25 | NUR ---
FREQUENT ROUNDING PT IS AWAKE AND STABLE IN BED NO APPARENT DISTRESS, ALL SAFETY MEASURES ARE IN PLACE WILL CONTINUE TO MONITOR
--- NOTE | 2019-02-12 11:29 | NUR ---
CALLED [facility] SPOKE TO [facility] [phone], FAXED CLINICALS AND PATIEN INFO TO [phone]. PER [facility], PATIENT WILL GO TO ROOM 39B, AND DR Angel SALES IS THE ACCEPTING MD IN [place]. CINDY HUIZAR MADE AWARE.
[2019-02-12] MEDS: DAPTOMYCIN IV SCH ×2 (12:00→15:35)
[2019-02-12] MEDS: NACL 0.9% IV SCH ×2 (12:00→15:35)
[2019-02-12] MEDS: GAUZE TP SCH ×2 (13:00)
--- NOTE | 2019-02-12 13:20 | NUR ---
FREQUENT ROUNDING PT IS AWAKE AND STABLE IN BED NO APPARENT DISTRESS, ALL SAFETY MEASURES ARE IN PLACE WILL CONTINUE TO MONITOR
--- NOTE | 2019-02-12 15:35 | NUR ---
PT FINISHED WITH DIALYSIS HANGING DAPTOMYCIN CALLED AND NOTIFIED YAKELIN HERNANDEZ PASTE WORKER
--- NOTE | 2019-02-12 15:48 | NUR ---
CALLED [facility] SPOKE TO EDENILSON [phone]. PER EDENILSON [employer] TIME FOR PATIENT IS 5PM TO GO TO [place]. GAYE WHITE MADE AWARE.
--- NOTE | 2019-02-12 16:27 | NUR ---
EDENILSON CALLED FROM [facility] AND SAID THAT PATIENT WILL BE PICKED UP AT 7 PM, GAYE WHITE MADE AWARE.
--- NOTE | 2019-02-12 17:05 | NUR ---
CALLED AND GAVE HAND OFF REPORT TO AMEENA HUIZAR AT [facility]. WILL PREPARE THE PT FOR TRANSFER
[2019-02-12] MEDS: HYDROcodone/APAP 5/325 MG 1 TAB TAB PO PRN (17:53)
--- NOTE | 2019-02-12 19:49 | NUR ---
ENDORSED PT TO ENGINEERING GROUP MANAGER NURSE PT IS AWAKE IN BED PT IS STABLE AND READY FOR DISCHARGE. SIGNED ALL PAPER WORK
--- NOTE | 2019-02-12 19:50 | NUR ---
RECEIVED BEDSIDE REPORT FROM CINDY HUIZAR. PT IS AAOX4. ON 4L O2 VIA NC. PT IS BEDBOUND. MX WOUNDS. SEE WOUND ASSESSMENTS. DRESSING ARE C/D/I. RUE PICC LINE TKO. PT R CHEST MIRZA CATH. HD 2L LASTING 3HOURS. D/C TODAY TO [facility] D/C PAPERS SIGNS AND REPORT GIVEN BY CINDY TO FACILITY. ALL NEEDS MET AT THIS TIME. WILL CONTINUE TO MONITOR.
[2019-02-12] MEDS: ATORVASTATIN 20 MG TAB PO SCH (20:44)
--- NOTE | 2019-02-12 20:44 | NUR ---
SCHEDULED MEDICATIONS GIVEN. PT REFUSED COLACE. AND ROCEPHIN HELD PT BEING D/C. VS:098/66,92,94% ON 4L O2, 18,97.4
--- NOTE | 2019-02-12 21:33 | NUR ---
GAVE REPORT TO MERLYN AND IV REMOVED. IV CATH INTACT. ARM BANDS REMOVED. ALL BELONGINGS AND D/C PAPERS WENT WITH PATIENT. PT LEFT UNIT IN STABLE CONDITION VIA GURNEY.
== END 2019-02-12 21:33 | DRG 682 ==
LOC: MED 18:12 → MTU 02-09 02:29
PROVIDERS: ADMIT General Practice; ATTEND General Practice
PROC: 05HY33Z Insertion of Infusion Device into Upper Vein, Percutaneous Approach (ICD-10-PCS; principal; 2019-02-09)
PROC: 30233N1 Transfusion of Nonautologous Red Blood Cells into Peripheral Vein, Percutaneous Approach (ICD-10-PCS; 2019-02-09)
PROC: 5A1D70Z Performance of Urinary Filtration, Intermittent, Less than 6 Hours Per Day (ICD-10-PCS; 2019-02-09)
PROC: 5A1D70Z Performance of Urinary Filtration, Intermittent, Less than 6 Hours Per Day (ICD-10-PCS; 2019-02-10)
PROC: 5A1D70Z Performance of Urinary Filtration, Intermittent, Less than 6 Hours Per Day (ICD-10-PCS; 2019-02-11)
PROC: 5A1D70Z Performance of Urinary Filtration, Intermittent, Less than 6 Hours Per Day (ICD-10-PCS; 2019-02-12)
DX: N17.0 Acute kidney failure with tubular necrosis (principal); I33.0 Acute and subacute infective endocarditis; E43 Unspecified severe protein-calorie malnutrition; L03.113 Cellulitis of right upper limb; M86.9 Osteomyelitis, unspecified; I12.0 Hypertensive chronic kidney disease with stage 5 chronic kidney disease or end stage renal disease; L03.115 Cellulitis of right lower limb; N18.6 End stage renal disease; Z99.2 Dependence on renal dialysis; Z68.32 Body mass index [BMI] 32.0-32.9, adult; L89.152 Pressure ulcer of sacral region, stage 2; Z71.3 Dietary counseling and surveillance; D64.9 Anemia, unspecified; E78.5 Hyperlipidemia, unspecified; F41.9 Anxiety disorder, unspecified; G89.29 Other chronic pain; I34.0 Nonrheumatic mitral (valve) insufficiency; I73.9 Peripheral vascular disease, unspecified; J44.9 Chronic obstructive pulmonary disease, unspecified; K21.9 Gastro-esophageal reflux disease without esophagitis; Z79.01 Long term (current) use of anticoagulants; Z86.79 Personal history of other diseases of the circulatory system; Z87.891 Personal history of nicotine dependence; Z95.2 Presence of prosthetic heart valve; Z96.651 Presence of right artificial knee joint; Z98.84 Bariatric surgery status; E66.01 Morbid (severe) obesity due to excess calories; F32.9 Major depressive disorder, single episode, unspecified; F10.10 Alcohol abuse, uncomplicated; Y90.9 Presence of alcohol in blood, level not specified; F19.10 Other psychoactive substance abuse, uncomplicated; B95.62 Methicillin resistant Staphylococcus aureus infection as the cause of diseases classified elsewhere; S90.425A Blister (nonthermal), left lesser toe(s), initial encounter; X58.XXXA Exposure to other specified factors, initial encounter; Y93.89 Activity, other specified; Y92.89 Other specified places as the place of occurrence of the external cause; Y99.8 Other external cause status; K59.09 Other constipation
CPT/HCPCS: 36415; 71045; 76536; 80048; 80053; 80305; 81001; 82272; 82728; 83036; 83540; 83690; 83735; 84100; 84443; 85025; 85045; 85610; 85730; 86886; 86900; 86901; 86920; 87040; 87081; 90935; 93970; 93971; 96365; 99285; J0696; J0878; J0885; J1644; J1650; J3370; J3475; J7030; J7060; P9016; Q0092; Q0163